=== PATIENT | male | born 1960 | race African-American/Black ===

== ENCOUNTER 2023-12-08 18:31 | Emergency (ER) | payer MEDICAID ==
[~2023-12-08] VITALS: Ht 177.8 cm; Wt 83.2 kg
[2023-12-08] MEDS: AMOXICILLIN/CLAVUL 875 MG TAB PO ONE (20:07)
[2023-12-08] MEDS ORDERED: AUG875T PO (20:07)
[2023-12-08] MEDS: NEOMYCIN-BACITRACIN-POLYM UNITDOSE PKG TOP OINT TOP ONE (20:07)
[2023-12-08] MEDS ORDERED: MUPI2OIN2 EX (20:07)
[2023-12-08] MEDS: TETANUS-DIPTH-ACEL PERTUSSIS 0.5ML SYR Tdap IM ONE (20:29)
[2023-12-08 20:56] VITALS: BP 129/79; PULSE 89; RESP 20; TEMP 98.2; O2SAT 98
== END 2023-12-08 20:56 | disposition home or self-care (01) ==
LOC: ER 18:31
DX: S61.431A Puncture wound without foreign body of right hand, initial encounter (principal); S61.451A Open bite of right hand, initial encounter; W55.01XA Bitten by cat, initial encounter; Y93.89 Activity, other specified; Y92.89 Other specified places as the place of occurrence of the external cause; Y99.8 Other external cause status
CPT/HCPCS: 90471; 90715